=== PATIENT | male | born 1990 | race African-American/Black ===

== ENCOUNTER 2017-03-08 09:51 | Emergency (ER) | payer OTHER ==
[2017-03-08] MEDS ORDERED: LORazepam 1 MG TAB PO ONE ×2 (09:55→10:31)
--- NOTE | 2017-03-08 09:57 | EDPHY ---
H & P Time Seen by Provider: 03/08/17 09:51 HPI/ROS: CHIEF COMPLAINT: Racing thoughts HISTORY OF PRESENT ILLNESS: Did LSD about 11 hours ago and comes in after calling 911 for evaluation. He feels paranoid and has racing thoughts and does not feel safe. Denies hallucinations or suicidal thoughts. No recent illnesses. REVIEW OF SYSTEMS: Eye: no change in vision ENT: no sore throat Cardiac: no chest pain or syncope Pulmonary: no cough or SOB Abdomen: no vomiting, diarrhea, abdominal pain Musculoskeletal: no back pain Skin: no rash Neuro: no headache Constitutional: no fever : no urinary symptoms A comprehensive 10 point review of systems is otherwise negative aside from elements mentioned in the history of present illness. PAST MEDICAL HISTORY: Negative Social history: Recent LSD General Appearance: Alert and conversant, cooperative. Eyes: No scleral icterus. ENT, Mouth: Normal mucous membranes. Respiratory: Normal respiratory effort, breath sounds equal, lungs are clear to auscultation. Cardiovascular: Regular rate and rhythm. Gastrointestinal: Abdomen is soft and non tender. Neurological: Alert and oriented x3. Normally conversant. Face symmetric, normal movement and sensation in all extremities. Skin: Warm and dry, no rashes. Musculoskeletal: No peripheral edema and no joint swelling. Psychiatric: Not agitated. Not hallucinating, no SI or HI. Emergency Department course/MDM: Oral Ativan 1 mg x2. 1110: Feels better, ambulatory, not ataxic, wants to go. Constitutional: Initial Vital Signs Temperature (C) 36.9 C 03/08/17 09:57 Heart Rate 123 H 03/08/17 09:57 Respiratory Rate 14 03/08/17 09:57 Blood Pressure 144/100 H 03/08/17 09:57 O2 Sat (%) 96 03/08/17 09:57 O2 Delivery Mode Room Air Allergies/Adverse Reactions: No Known Allergies Allergy (Unverified 03/08/17 09:57) Home Medications: Medication Instructions Recorded NK [No Known Home Meds] 03/08/17 Medical Decision Making Differential Diagnosis: Differential considered including drug ingestion, alcohol ingestion, metabolic abnormality, primary psychiatric. - Data Points Medications Given: Discontinued Medications Lorazepam (Ativan) 1 mg PO EDNOW ONE Stop: 03/08/17 09:56 Last Admin: 03/08/17 10:07 Dose: 1 mg Lorazepam (Ativan) 1 mg PO EDNOW ONE Stop: 03/08/17 10:32 Last Admin: 03/08/17 10:48 Dose: 1 mg Departure - Departure Disposition: Home, Routine, Self-Care Clinical Impression: LSD reaction Condition: Good Instructions: Additional Information Referrals: aYng Rodriguez MD [Medical Doctor] - As per Instructions
[2017-03-08 09:59] VITALS: TEMP 98.4
[2017-03-08 11:21] VITALS: BP 136/88; PULSE 113; RESP 16; O2SAT 97
== END 2017-03-08 11:21 | disposition home or self-care (01) ==
LOC: EDSEX
DX: T40.8X1A Poisoning by lysergide [LSD], accidental (unintentional), initial encounter (principal)